=== PATIENT | female | born 1955 | race Caucasian/White ===

== ENCOUNTER 2016-07-06 12:08 | Observation (INO) | payer MEDICAID, OTHER ==
[2016-07-06 13:11] LABS: BASO % 0.3 % (0.0-2.0); EOS # 0.2 K/uL (0.0-0.7); EOS % 3.2 % (0.0-4.0); HEMATOCRIT 42.6 % (34.0-47.0); LYMPH # 2.2 K/uL (1.0-4.3); MEAN CELL VOLUME 83.6 fl (81.0-99.0); MEAN CORPUSCULAR HEMOGLOBIN 27.2 pg (27.0-31.0); MEAN CORPUSCULAR HGB CONC 32.6 g/dL (33.0-37.0); MEAN PLATELET VOLUME 8.8 fl (7.2-11.7); MONO # 0.6 K/uL (0.0-0.8); MONO % 7.2 % (0.0-10.0); NEUT # 4.7 K/uL (1.8-7.0); NEUT % 60.3 % (50.0-75.0); RED CELL DISTRIBUTION WIDTH 15.1 % (11.5-14.5); WHITE BLOOD COUNT 7.8 K/uL (4.8-10.8)
[2016-07-06 13:28] LABS: CHLORIDE 104 mmol/L (98-107); SODIUM 141 mmol/l (132-148)
[2016-07-06 13:30] LABS: CHOLESTEROL 165 mg/dL (0-199); GFR AFRICAN-AMERICAN > 60
[2016-07-06 13:31] LABS: ALB/GLOB RATIO 1.3 (1.0-2.1); ALKALINE PHOSPHATASE 124 U/L (38-126); ALT/SGPT 28 U/L (9-52); AST/SGOT 26 U/L (14-36); BILIRUBIN,TOTAL 1.1 mg/dl (0.2-1.3); BLOOD UREA NITROGEN 10 mg/dl (7-17); CALCIUM 9.9 mg/dL (8.4-10.2); CARBON DIOXIDE 26 mmol/L (22-30); GLUCOSE,RANDOM 91 mg/dL (65-105); TOTAL PROTEIN 8.2 G/DL (6.3-8.2)
--- NOTE | 2016-07-06 13:31 | CT ---
PROCEDURE: CT HEAD WITHOUT CONTRAST. HISTORY: R sided numbness x1wk COMPARISON: Comparison is made to the previous study dated 05/29/2014 TECHNIQUE: Axial computed tomography images were obtained through the head/brain without intravenous contrast. Radiation dose: Total exam DLP = 867.04 mGy-cm. This CT exam was performed using one or more of the following dose reduction techniques: Automated exposure control, adjustment of the mA and/or kV according to patient size, and/or use of iterative reconstruction technique. FINDINGS: HEMORRHAGE: No intracranial hemorrhage. BRAIN: No mass effect or edema. No atrophy or chronic microvascular ischemic changes. VENTRICLES: Unremarkable. No hydrocephalus. CALVARIUM: Unremarkable. PARANASAL SINUSES: Almost complete opacification of the frontal ethmoidal and sphenoid sinuses MASTOID AIR CELLS: Unremarkable as visualized. No inflammatory changes. OTHER FINDINGS: None. IMPRESSION: No evidence of acute intracranial hemorrhage intracranial collection mass effect or midline shift. Findings suggestive of sinusitis.
[2016-07-06 13:42] LABS: PARTIAL THROMBOPLASTIN TIME 29.2 SECONDS (23.3-32.5)
--- NOTE | 2016-07-06 14:02 | ED PDOC ---
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 - Chief Complaint Chief Complaint: Numbness - Onset Onset: Days (approx 8 days ago) - Timing Timing: Currently Symptomatic, Intermittent - Location Locate right:: Face, Upper extremity - Radiation Radiation: Head - Severity of pain Maximum severity:: Moderate Severity Current: Moderate - Quality of Pain Quality of Pain:: Pressure - Associated Symptoms Associated symptoms:: Chest pain, Headache, Numbness, Nausea, Palpitations - Exacerbated by Exacerbated by:: Nothing - Relieved by Relieved by:: Nothing - TPA Positive for Contraindication: Yes Reason tPA is not being Administered: symptoms ongoing for 8 days - Notes: Notes:: 60yo female c/o right sided facial and upper extremity numbness associated with headache ongoing for about 8 days intermittently. Denies weakness, change in speech or vision. Went to PMD yesterday sent for carotid doppler unknown result , told to come to ER if symptoms returned. Also notes occassional chest pain, poorly localized. Denies SOB, orthopnea or fever. Takes ASA, amlodipine and statin daily. NIHSS Stroke Scale - Date/Time Evaluation Performed Date Performed: 07/06/16 Time Performed: 12:35 When Was NIHSS Performed: Baseline - How Severe is the Stroke Level of Consciousness: 0=Alert LOC to Questions: 0=Both comments correct LOC to commands: 0=Obeys both correctly Best Gaze: 0=Normal Visual: 0=No visual loss Facial: 0=Normal Motor Arm - Left: 0=No drift Motor Arm - Right: 0=No drift Motor Leg - Left: 0=No drift Motor Leg - Right: 0=No drift Limb Ataxia: 0=Absent Sensory: 0=Normal Best Language: 0=No aphasia Dysarthia: 0=Normal articulation Extinction & Inattention (Neglect): 0=Normal, no object Score: 0 rTPA Inclusion/Exclusion - Refusal of Treatment Patient Refused Treatment: No - Inclusion Criteria for Altepase Patient is 18 years or Older: Yes The Clinical Diagnosis of Ischemic Stroke That is Causing a Potentially Disabling Neurological Deficit: Yes Time of Onset is Well Established to be Less Than 270 Minute Before Treatment Would Begin: No Risk/Benefit Discussed With Patient/Family Member Present: Yes - Warning to TPA With Conditions Following Conditions Weighed Against Anticipated Benefit: Yes Condition: Stroke Serevity Too Mild, Rapid Improvement Past Medical History Reviewed: Historical Data, Nursing Documentation, Vital Signs Vital Signs: Last Vital Signs Temp 98.3 F 07/06/16 12:20 Pulse 84 07/06/16 12:20 Resp 18 07/06/16 12:20 BP 160/86 H 07/06/16 12:20 Pulse Ox 98 07/06/16 12:20 - Medical History PMH: CVA (2 years ago no deficits), HTN, Hypercholesterolemia - Family History Family History: States: Unknown Family Hx - Living Arrangements Living Arrangements: With Family - Social History Current smoker - smoking cessation education provided: No Alcohol: None - Home Medications Home Medications: Ambulatory Orders Medication Instructions Recorded Aspirin [Aspirin EC] 81 mg PO DAILY 05/29/14 Atorvastatin [Lipitor] 10 mg PO HS 07/06/16 Multivitamin/Iron/Folic Acid 1 tab PO DAILY 07/06/16 [Centrum Women Tablet] Clindamycin [Cleocin] 300 mg PO Q8 cap 07/07/16 Fluticasone Propionate [Flonase] 1 spr GERI BID bottle 07/07/16 amLODIPine [Norvasc] 5 mg PO HS #30 07/07/16 - Allergies Allergies/Adverse Reactions: Allergies Allergy/AdvReac Type Severity Reaction Status Date / Time No Known Allergies Allergy Verified 03/27/15 08:26 Review of Systems ROS Statement: Except As Marked, All Systems Reviewed And Found Negative Constitutional: Negative for: Fever, Chills Eyes: Negative for: Pain, Vision Change ENT: Negative for: Nose Discharge, Throat Pain, Other Cardiovascular: Positive for: Chest Pain, Light Headedness. Negative for: Palpitations Respiratory: Negative for: Cough, Shortness of Breath Gastrointestinal: Negative for: Nausea, Vomiting Genitourinary Female: Negative for: Dysuria, Frequency Musculoskeletal: Positive for: Shoulder Pain, Arm Pain. Negative for: Neck Pain Skin: Negative for: Rash, Lesions Neurological: Positive for: Numbness, Headache, Dizziness. Negative for: Weakness, Incoordination, Change in Speech, Confusion, Seizures, Altered Mental Status Psych: Positive for: Anxiety. Negative for: Depression Physical Exam - Reviewed Nursing Documentation Reviewed: Yes Vital Signs Reviewed: Yes - Physical Exam Appears: Positive for: Well, Non-toxic, No Acute Distress Head Exam: Positive for: ATRAUMATIC, NORMAL INSPECTION, NORMOCEPHALIC Skin: Positive for: Normal Color, Warm, DRY Eye Exam: Positive for: EOMI, Normal appearance, PERRL ENT: Positive for: Normal ENT Inspection Neck: Positive for: Normal, Painless ROM Cardiovascular/Chest: Positive for: Regular Rate, Rhythm Respiratory: Positive for: CNT, Normal Breath Sounds Gastrointestinal/Abdominal: Positive for: Normal Exam, Bowel Sounds, Soft Back: Positive for: Normal Inspection Extremity: Positive for: Normal ROM Neurologic/Psych: Positive for: Alert, resident service coordinator II-XII (intact), Oriented, Mood/ Affect (anxious), Cerebellar Tests (intact), Other (objective sensation loss absent; strength 5/5 all ext; ). Negative for: Motor/Sensory Deficits, Aphasia - Laboratory Results Result Diagrams: 07/06/16 12:40 07/06/16 12:40 - ECG ECG: Positive for: Interpreted By Me ECG Rhythm: Positive for: Sinus Rhythm, Nonspecific Changes O2 Sat by Pulse Oximetry: 98 Pulse Ox Interpretation: Normal Medical Decision Making Medical Decision Making: code stroke not activated as symptoms ongoing intermittently for ~[address] brain, EKG and labwork ordered. Dr Tobias PMD paged and discussed for further history. US duplex carotids performed outside office result pending. labs reviewed CT brain neg for bleed, ASA initiated. Admit obs tele Dr Tobias, care transferred. Dr Chaney neuro consult requested. Disposition - Clinical Impression Clinical Impression: TIA (transient ischemic attack), Headache - Patient ED Disposition Is Patient to be Admitted: Yes Counseled Patient/Family Regarding: Studies Performed - Disposition Disposition Time: 13:35 Condition: FAIR - Pt Status Changed To: Hospital Disposition Of: Observation - POA Present On Arrival: None
--- NOTE | 2016-07-06 14:38 | CP.PCM.HP ---
History of Present Illness - History of Present Illness History of Present Illness: 60 y/o lady presented in ER with hx of numbness in the rt side of the body and atypical chest pain. Patient c/o for the past week same paresthesia in the rt arm and face with no deficit. She was seen in ER and eventually i the PMD office. Same OP w/u was prescribed and still pending (carotid u/s). The day of admission she started to complain same pre cordial pain not on exertion, no palpitations, no diaphoresis , cough, fever. The pain last for few second. At the same time she c/o numbness of the rt arm and face, no focal deficit or weakness. no nausea, no vomiting, no seizure or syncope. Patient with hx of hyperlipedemia and HTN. She had an episode of TIA 2 yeas ago. At present no c/o no deficit. Will admit under observation for further evaluation. Present on Admission - Present on Admission Any Indicators Present on Admission: No Review of Systems - Constitutional Constitutional: As Per HPI - EENT Eyes: As Per HPI Nose/Mouth/Throat: As Per HPI - Cardiovascular Cardiovascular: As Per HPI - Respiratory Respiratory: As Per HPI - Gastrointestinal Gastrointestinal: As Per HPI - Genitourinary Genitourinary: As Per HPI - Musculoskeletal Musculoskeletal: As Per HPI - Integumentary Integumentary: As Per HPI - Neurological Neurological: As Per HPI - Psychiatric Psychiatric: As Per HPI Past Patient History - Past Medical History & Family History Past Medical History?: Yes - Past Social History Alcohol: None - CARDIAC Hx Hypercholesterolemia: Yes Hx Hypertension: Yes - PULMONARY Hx Respiratory Disorders: Yes (chronic sinusitis) - HEENT Hx HEENT Problems: Yes - ENDOCRINE/METABOLIC Hx Endocrine Disorders: No - HEMATOLOGICAL/ONCOLOGICAL Hx Blood Disorders: No - INTEGUMENTARY Hx Dermatological Problems: No - MUSCULOSKELETAL/RHEUMATOLOGICAL Hx Musculoskeletal Disorders: No - GASTROINTESTINAL Hx Gastrointestinal Disorders: No - GENITOURINARY/GYNECOLOGICAL Hx Genitourinary Disorders: No - PSYCHIATRIC Hx Psychophysiologic Disorder: No - SURGICAL HISTORY Hx Surgeries: Yes Hx Section: Yes Hx Dilation and Curettage: Yes Other/Comment: Nasal polyps removal - ANESTHESIA Hx Anesthesia: Yes Hx Anesthesia Reactions: No Hx Malignant Hyperthermia: No Meds Allergies/Adverse Reactions: Allergies Allergy/AdvReac Type Severity Reaction Status Date / Time No Known Allergies Allergy Verified 03/27/15 08:26 Physical Exam - Constitutional Appears: Non-toxic - Head Exam Head Exam: ATRAUMATIC, NORMAL INSPECTION, NORMOCEPHALIC - Eye Exam Eye Exam: EOMI, Normal appearance, PERRL Pupil Exam: NORMAL ACCOMODATION, PERRL - ENT Exam ENT Exam: Mucous Membranes Moist - Respiratory Exam Respiratory Exam: Clear to Auscultation Bilateral - Cardiovascular Exam Cardiovascular Exam: REGULAR RHYTHM, +S1, +S2 - GI/Abdominal Exam GI & Abdominal Exam: Normal Bowel Sounds, Soft - Extremities Exam Extremities exam: Positive for: normal inspection - Back Exam Back exam: NORMAL INSPECTION - Neurological Exam Neurological exam: Alert, CN II-XII Intact, Normal Gait, Oriented x3, Reflexes Normal - Psychiatric Exam Psychiatric exam: Normal Affect Results - Vital Signs Recent Vital Signs: Last Vital Signs Temp 98 F 07/06/16 14:06 Pulse 81 07/06/16 14:06 Resp 18 07/06/16 14:06 BP 141/90 07/06/16 14:06 Pulse Ox 98 07/06/16 14:06 - Labs Result Diagrams: 07/06/16 12:40 07/06/16 12:40 Assessment & Plan (1) Hyperlipidemia Status: Chronic (2) Sinusitis Status: Acute (3) Headache Status: Acute (4) TIA (transient ischemic attack) Status: Acute (5) Hypertension Status: Chronic (6) Atypical chest pain Status: Acute - Assessment and Plan (Free Text) Plan: As per orders. F/U cardio consult F/U neuro consult. W/U pending
--- NOTE | 2016-07-06 15:02 | RAD ---
HISTORY: Chest pain shortness of breath. Portable study 12:53. COMPARISON: 05/29/2014. FINDINGS: LUNGS: No active pulmonary disease. PLEURA: No significant pleural effusion identified, no pneumothorax apparent. CARDIOVASCULAR: No radiographic findings to suggest acute or significant cardiovascular disease. OSSEOUS STRUCTURES: No significant abnormalities. VISUALIZED UPPER ABDOMEN: Normal. OTHER FINDINGS: None. IMPRESSION: No active disease. No significant interval change compared to the prior examination(s).
[2016-07-06 15:45] LABS: URINE APPEARANCE CLEAR (CLEAR); URINE BILIRUBIN NEGATIVE (NEGATIVE); URINE BLOOD NEGATIVE (NEGATIVE); URINE COLOR STRAW (YELLOW); URINE GLUCOSE (UA) NEG (Normal); URINE KETONE NEGATIVE (NEGATIVE); URINE LEUKOCYTE ESTERASE NEG Leu/uL (Negative); URINE PROTEIN NEGATIVE (NEGATIVE); URINE UROBILINOGEN 0.2-1.0 mg/dL (0.2-1.0)
--- NOTE | 2016-07-06 16:43 | MRI ---
PROCEDURE: MRI BRAIN WITHOUT CONTRAST HISTORY: TIA COMPARISON: Comparison is made to the previous same-day CT of the head without contrast. TECHNIQUE: Multiplanar, multisequence MR images of the brain were obtained without intravenous contrast enhancement. FINDINGS: HEMORRHAGE: None DWI: No evidence of an acute or early subacute infarction. BRAIN PARENCHYMA: No mass effect or edema. No atrophy or chronic microvascular ischemic changes. VENTRICLES: Unremarkable. No hydrocephalus. CRANIUM: Unremarkable. ORBITS: Grossly unremarkable. PARANASAL SINUSES/MASTOIDS: Almost complete opacification of the frontal ethmoidal and sphenoid sinuses consistent with sinusitis. VASCULAR SYSTEM: Skull base flow voids intact. OTHER FINDINGS: None. IMPRESSION: No evidence of acute or subacute infarct. No evidence of acute intracranial hemorrhage mass effect or midline shift. Findings suggestive of sinusitis.
--- NOTE | 2016-07-06 16:44 | MRI ---
PROCEDURE: Magnetic Resonance Angiography Brain HISTORY: TIA COMPARISON: None available. TECHNIQUE: 3D time of flight MR angiography of the intracranial arteries was performed. Rotating maximum intensity projection images were generated. FINDINGS: INTERNAL CEREBRAL ARTERIES: Unremarkable. The skull base, petrous, cavernous and supraclinoid segments are bilaterally widely patient. ANTERIOR CEREBRAL ARTERIES: Unremarkable. A1 and A2 segments are widely patent. Smaller distal branches unremarkable, as visualized. MIDDLE CEREBRAL ARTERIES: Unremarkable. M1 and M2 segments are widely patent. Perisylvian branches grossly symmetric. POSTERIOR CIRCULATION: Basilar Artery: Unremarkable. Distal Vertebral Arteries: Unremarkable. Posterior Cerebral Arteries: Unremarkable. Posterior Inferior Cerebellar Arteries: Unremarkable. ANEURYSM/ VASCULAR MALFORMATIONS: None. OTHER FINDINGS: None. IMPRESSION: Unremarkable MR angiography of the brain.
[2016-07-06] MEDS: Multivitamin With Minerals Tab PO SCH (17:05)
[2016-07-07] MEDS: Multivitamin With Minerals Tab PO SCH (08:36)
--- NOTE | 2016-07-07 08:42 | CARD ---
APPROVED REPORT EKG Measurement Heart [id number] <Conclusion> Normal sinus rhythm Normal ECG
--- NOTE | 2016-07-07 12:01 | CARD ---
APPROVED REPORT EXAM: Two-dimensional and M-mode echocardiogram with Doppler and color Doppler. Other Information Quality : GoodRhythm : NSR INDICATION Chest Pain 2D DIMENSIONS IVSd1.16 (0.7-1.1cm)LVDd3.70 (3.9-5.9cm) LVOT Diameter2.16 (1.8-2.4cm)PWd1.11 (0.7-1.1cm) IVSs1.43 (0.8-1.2cm)LVDs2.24 (2.5-4.0cm) FS (%) 39.6 %PWs1.32 (0.8-1.2cm) M-Mode DIMENSIONS Left Atrium (MM)3.56 (2.5-4.0cm)IVSd0.77 (0.7-1.1cm) Aortic Root3.67 (2.2-3.7cm)LVDd4.88 (4.0-5.6cm) Aortic Cusp Exc.2.01 (1.5-2.0cm)PWd0.99 (0.7-1.1cm) IVSs1.82 cmFS (%) 59 % LVDs1.99 (2.0-3.8cm)PWs1.32 cm Mitral Valve MV E Gorzuufq96.3cm/sMV DECEL [id number] A Jkejopof71.8cm/s MV PGX28lhK/A ratio1.0MVA (PHT)2.59cm2 TDI Lateral E' Peak V7.66cm/sMedial E' Peak V5.13cm/sE/Lateral E'6.8 E/Medial E'10.2 Pulmonary Valve PV Peak Zidmzdtw91.3cm/s LEFT VENTRICLE The left ventricle is normal size. There is normal left ventricular wall thickness. The left ventricular function is normal. The left ventricular ejection fraction is within the normal range. The Ejection Fraction is 60-65%. There is normal LV segmental wall motion. The left ventricular diastolic function is normal. No left ventricle thrombus noted on this study. There is no mass noted in the left ventricle. RIGHT VENTRICLE The right ventricle is normal size. There is normal right ventricular wall thickness. The right ventricular systolic function is normal. ATRIA The left atrium size is normal. The right atrium size is normal. The interatrial septum is intact with no evidence for an atrial septal defect. AORTIC VALVE The aortic valve is normal in structure and function. No aortic regurgitation is present. There is no aortic valvular stenosis. There is no aortic valvular vegetation. MITRAL VALVE The mitral valve is normal in structure and function. There is no evidence of mitral valve prolapse. There is no mitral valve stenosis. There is no mitral valve regurgitation noted. TRICUSPID VALVE The tricuspid valve is normal in structure and function. There is no tricuspid valve regurgitation noted. There is no tricuspid valve prolapse or vegetation. There is no tricuspid valve stenosis. PULMONIC VALVE The pulmonary valve is normal in structure and function. There is no pulmonic valvular regurgitation. There is no pulmonic valvular stenosis. GREAT VESSELS The aortic root is normal in size. The IVC is normal in size and collapses >50% with inspiration. PERICARDIAL EFFUSION The pericardium appears normal. There is no pleural effusion. <Conclusion> The left ventricle is normal size. The left ventricular function is normal. The left ventricular ejection fraction is within the normal range. The Ejection Fraction is 60-65%.
--- NOTE | 2016-07-07 12:11 | CON ---
DATE: 07/07/2016 REASON FOR CONSULTATION: Chest pain. HISTORY OF PRESENT ILLNESS: The patient is a 60-year-old female originally from [facility] who has a hi story of hypertension, presented because of right-sided facial and right upper arm numbness associate d with headache. The patient denies any slurring speech, dizziness or syncope. The patient did repo rt chest pain. The patient is unaware of any prior cardiac history other than history of hypertensio n and hyperlipidemia. SOCIAL HISTORY: Nonsmoker, nondrinker. MEDICATIONS: At home, the patient was on amlodipine, aspirin, Lipitor and multivitamin. CURRENT MEDICATIONS: Clindamycin 300 mg q. 8 hours orally, aspirin 81 mg once a day, Lipitor 10 mg o nce a day, Norvasc 5 mg once a day. PHYSICAL EXAMINATION: GENERAL: The patient is a middle-aged female who does not appear to be in any distress. VITAL SIGNS: Blood pressure 129/79, heart rate 71, temperature 98, respirations 20. HEENT: Normocephalic. NECK: No JVD. CHEST: Clear. HEART: S1, S2 regular. ABDOMEN: Soft. EXTREMITIES: No edema. LABORATORY DATA: SMA-7 is within normal limits. Three sets of troponins are negative. PT, PTT are within normal limits. CBC: WBC 7.8, hemoglobin and hematocrit 13.9 and 42.6, platelet count 246,000 . EKG revealed normal sinus rhythm. Head MRA and brain MRI were unremarkable. ASSESSMENT: 1. Chest pain, myocardial infarction is ruled out. 2. Rule out transient ischemic attack. 3. Hypertension. RECOMMENDATIONS: Continue current aspirin, Lipitor, Norvasc therapy. I will review the echocardiogr aphic study. Michael Gamboa MD cc: [id number] TT: 07/07/2016 12:11:04 Confirmation # [id number] Dictation # [id number] audelia
[2016-07-07 12:39] VITALS: RESP 18
--- NOTE | 2016-07-07 14:45 | MRI ---
PROCEDURE: MR Angiography of the neck without contrast HISTORY: carotid stenosis COMPARISON: None available. TECHNIQUE: 2D TOF SPGR and 3D TOF MT angiography of the neck was performed. Rotating maximum intensity projection images of the cervical carotid and vertebral arteries were generated. The origins of the common carotid arteries were not visualized, which is a limitation inherent to the non-contrast time of flight technique. FINDINGS: RIGHT CAROTID ARTERIES: The right common carotid artery, carotid bifurcation and internal carotid are widely patent. No evidence of occlusion or significant stenosis. LEFT CAROTID ARTERIES: Left common carotid artery, carotid bifurcation and left internal carotid artery also widely patent without evidence of occlusion or significant stenosis. VERTEBRAL ARTERIES: The vertebral arteries are patent and relatively symmetric throughout. No evidence of occlusion or significant stenosis. OTHER FINDINGS: None. IMPRESSION: No evidence of occlusion or significant stenosis.
--- NOTE | 2016-07-07 15:14 | CP.PCM.PN ---
Subjective - Date & Time of Evaluation Date of Evaluation: 07/07/16 Time of Evaluation: 15:14 - Subjective Subjective: comfortable Objective - Vital Signs/Intake and Output Vital Signs (last 24 hours): Temp Pulse Resp BP Pulse Ox 98.0 F 87 18 155/93 H 95 07/07/16 12:39 07/07/16 12:39 07/07/16 12:39 07/07/16 12:39 07/07/16 12:39 - Medications Medications: Current Medications Amlodipine Besylate (Norvasc) 5 mg PO HS [facility] Last Admin: 07/06/16 21:35 Dose: 5 mg Aspirin (Ecotrin) 81 mg PO DAILY [facility] Last Admin: 07/07/16 08:35 Dose: 81 mg Atorvastatin Calcium (Lipitor) 10 mg PO HS [facility] Last Admin: 07/06/16 21:35 Dose: 10 mg Clindamycin HCl (Cleocin) 300 mg PO Q8 [facility] Last Admin: 07/07/16 08:35 Dose: 300 mg Fluticasone Propionate (Flonase) 1 spr GERI BID [facility] Last Admin: 07/07/16 08:36 Dose: 1 spr Multivitamins/Minerals (Therapeutic-M Tab) 1 tab PO DAILY [facility] Last Admin: 07/07/16 08:36 Dose: 1 tab - Labs Labs: PT 10.3 SECONDS (9.6-11.2) 07/06/16 12:40 INR 0.99 (0.92-1.08) 07/06/16 12:40 APTT 29.2 SECONDS (23.3-32.5) 07/06/16 12:40 - Constitutional Appears: Well - Head Exam Head Exam: ATRAUMATIC, NORMAL INSPECTION, NORMOCEPHALIC - Eye Exam Eye Exam: EOMI, Normal appearance, PERRL - ENT Exam ENT Exam: Mucous Membranes Moist - Neck Exam Neck Exam: Full ROM - Respiratory Exam Respiratory Exam: Clear to Ausculation Bilateral - Cardiovascular Exam Cardiovascular Exam: REGULAR RHYTHM, +S1, +S2 - GI/Abdominal Exam GI & Abdominal Exam: Soft, Normal Bowel Sounds - Extremities Exam Extremities Exam: Full ROM, Normal Capillary Refill, Normal Inspection - Neurological Exam Neurological Exam: Alert, Awake, CN II-XII Intact, Normal Gait, Oriented x3 - Psychiatric Exam Psychiatric exam: Normal Affect Assessment and Plan (1) Hyperlipidemia Status: Chronic (2) Sinusitis Status: Acute (3) Headache Status: Acute (4) TIA (transient ischemic attack) Status: Acute (5) Hypertension Status: Chronic (6) Atypical chest pain Status: Acute
[2016-07-07 15:32] VITALS: O2SAT 98
[2016-07-07 16:12] VITALS: BP 147/86; PULSE 84; TEMP 98.2
--- NOTE | 2016-07-10 09:34 | CON ---
DATE: 07/07/2016 REASON FOR CONSULTATION: Numbness of the right arm. HISTORY OF PRESENTING ILLNESS: The patient is a 60-year-old female who came to the Emergency Room wi th complaints of tingling and numbness in the right hand. It was mostly in the right hand, in the th umb, in index finger and going up towards the forearm. She had some questionable tingling on the rig ht side of the face. She has been having intermittent headache for the last few days. Denies any fo mary weakness in arms or legs. She was seen by her primary care physician about a week ago and had a carotid Doppler done, which are normal. The patient was admitted with a possible diagnosis of transi ent ischemic attack. At the moment, her tingling is better. She denies any focal weakness in arms o r legs. REVIEW OF SYSTEMS: Denies any headache, dizziness, chest pain, shortness of breath, abdominal pain, constipation, diarrhea, dysuria, pyuria, cough, sputum production, hallucinations, skin rash. PAST MEDICAL HISTORY: Includes hypertension, hypercholesterolemia. MEDICATIONS AT HOME: Included aspirin, Lipitor, Norvasc and multivitamin. ALLERGIES: No known drug allergies. SOCIAL HISTORY: Denies smoking, use of alcohol or illicit drugs. FAMILY HISTORY: Reviewed and noncontributory. PHYSICAL EXAMINATION: GENERAL: The patient is a middle-aged female, lying on the bed, in no acute distress. VITAL SIGNS: Her blood pressure is 129/79, heart rate is 71 per minute, breathing at a rate of 16 pe r minute, temperature is 98 degrees Fahrenheit. HEENT: Head is normocephalic, atraumatic. NECK: Supple. There are no carotid bruits. LUNGS: Clear. CARDIOVASCULAR: S1, S2 audible with no murmurs. ABDOMEN: Soft and nontender with bowel sounds present. NEUROLOGIC EXAMINATION: MENTAL STATUS: The patient is awake, alert, oriented to time, place, person. Speech is fluent. Nam ing and repetition normal. Memory and cognition are intact. CRANIAL NERVES: Pupils are 3 mm bilaterally, reactive to light. Visual marinelli are full. Extraocula r movements are intact. There is no facial asymmetry. Palate is upgoing bilaterally and tongue is m idline. MOTOR: Tone is normal. Power is 5/5 bilaterally in all extremities. Reflexes +2 and symmetrical. Plantars downgoing bilaterally. CEREBELLAR: [id number] shows no dysmetria. Gait is narrow based. SENSORY: Intact to soft touch and pinprick. MISCELLANEOUS: Positive Tinel sign across right wrist. IMPRESSION: Status post numbness in the right upper extremity, mainly involving the right forearm an d thumb and index finger of the right hand. This is likely secondary to carpal tunnel syndrome with positive Tinel sign. RECOMMENDATIONS: 1. The patient to have an electromyography and nerve conduction study, which may be done as outpatie nt. 2. The patient may use a wrist splint on her right hand, particularly at nighttime. 3. The patient is ruled out for cerebrovascular accident or transient ischemic attack. 4. The patient may be discharged with outpatient followup. Thank you for the opportunity to participate in the care of this patient. La Chaney MD cc: [id number] TT: 07/07/2016 12:04:40 Confirmation # [id number] Dictation # [id number] en 07/10/2016 08:33:28
== END 2016-07-07 16:40 | disposition home or self-care (01) ==
LOC: H.ER 12:08 → H.ERHOLD 13:42 → H.TEL 16:28
PROVIDERS: ADMIT Internal Medicine; ATTEND Internal Medicine
DX: J01.90 Acute sinusitis, unspecified (principal); R51 Headache; R07.89 Other chest pain; G56.01 Carpal tunnel syndrome, right upper limb; E78.5 Hyperlipidemia, unspecified; E78.00 Pure hypercholesterolemia, unspecified; I10 Essential (primary) hypertension; Z79.82 Long term (current) use of aspirin; Z86.73 Personal history of transient ischemic attack (TIA), and cerebral infarction without residual deficits